=== PATIENT | female | born 1970 | race African-American/Black ===

== ENCOUNTER 2023-02-01 16:21 | Inpatient (IN) | payer MEDICAID, OTHER ==
[~2023-02-01] VITALS: Ht 157.5 cm; Wt 93.9 kg
[2023-02-01] MEDS ORDERED: cloNIDine HCL 0.1 MG TAB PO ONE (16:45)
[2023-02-01 17:04] LABS: Basophils # (auto) 0.1 10 ^3/uL (0-0.2); Basophils % (auto) 0.8 % (0.0-2.0); Eosinophils # (auto) 0.5 10 ^3/uL (0-0.8); Eosinophils % (auto) 7.2 % (0.0-7.0); Hematocrit 35.9 % (36.0-46.0); Hemoglobin 11.5 g/dL (12.2-16.2); Lymphocytes # (auto) 2.5 10 ^3/uL (0.4-5.4); Lymphocytes % (auto) 39.7 % (10.0-50.0); Mean Corpuscular Hgb Conc. 31.9 g/dL (32.0-36.0); Mean Corpuscular Volume 87.6 fL (80.0-100.0); Monocytes # (auto) 0.5 10 ^3/uL (0-1.3); Monocytes % (auto) 7.9 % (0.0-12.0); Neutrophils # (auto) 2.8 10 ^3/uL (1.6-8.6); Neutrophils % (auto) 44.4 % (37.0-80.0); Nucleated Red Blood Cells % 0.1 %; Red Cell Distribution Width 18.8 % (11.8-14.3); White Blood Cell 6.4 10^3/uL (4.4-10.8)
[2023-02-01 17:20] LABS: INR 0.93 (0.9-1.15); Partial Thromboplastin Time 24.5 SEC (24.5-34.5); Prothrombin Time 9.8 sec (9.3-11.8)
[2023-02-01 17:25] LABS: Alanine Aminotransferase 21 U/L (7-40); Albumin 4.1 g/dL (3.2-4.8); Alkaline Phosphatase 126 U/L (46-116); Anion Gap 3 (5-15); Aspartate Aminotransferase 20 U/L (13-40); BUN/Creatinine Ratio 15.6 (10.0-20.0); Bilirubin, Total 0.2 mg/dL (0.2-1.0); Blood Urea Nitrogen 15 mg/dL (9-23); Calcium 9.1 mg/dL (8.7-10.4); Carbon Dioxide 28 mmol/L (20-30); Chloride 110 mmol/L (98-107); Glucose 83 mg/dL (74-106); Magnesium 2.2 mg/dL (1.6-2.6); Potassium 4.7 mmol/L (3.5-5.1); Sodium 141 mmol/L (136-145); Total Protein 6.6 g/dL (5.7-8.2)
[2023-02-01] MEDS ORDERED: ONDANSETRON HCL 4 MG/2 ML VIAL IV ONE (23:00)
[2023-02-01] MEDS ORDERED: MORPHINE SULFATE 4 MG/ML SYR/VIAL IV ONE (23:00)
[2023-02-01] MEDS ORDERED: ASPirin 81 mg TAB PO ONE (23:00)
[2023-02-01] MEDS ORDERED: HYDROcodone-ACET 10/325MG TAB PO ONE (23:00)
[2023-02-01] MEDS ORDERED: PANTOPRAZOLE 40 MG/10 ML VIAL INJ IV ONE (23:00)
[2023-02-01] MEDS ORDERED: NITROGLYCERIN 2% OINT 1GM PKG TD ONE (23:00)
[2023-02-01] MEDS ORDERED: ENOXAPARIN SOD 100 MG/1 ML SYRINGE SC ONE (23:00)
[2023-02-01 23:49] LABS: INR 0.95 (0.9-1.15); Partial Thromboplastin Time 24.2 SEC (24.5-34.5)
[2023-02-01 23:55] VITALS: O2SAT 98
[2023-02-02] MEDS ORDERED: NITROGLYCERIN 0.4 MG SL TAB SL PRN (01:15)
[2023-02-02] MEDS ORDERED: MORPHINE SULFATE INJ 2 MG/ml SYRG IV PRN (01:15)
[2023-02-02] MEDS ORDERED: DOCUSATE SOD 100 MG CAP PO PRN (01:15)
[2023-02-02] MEDS ORDERED: ACETAMINOPHEN 325 MG TAB PO PRN (01:15)
[2023-02-02 04:00] VITALS: PULSE 66; RESP 11; O2SAT 93
[2023-02-02] MEDS: hydrALAZINE HCL 20 MG/ML VL IV PRN ×2 (04:49→16:21)
[2023-02-02 05:12] LABS: Basophils # (auto) 0.1 10 ^3/uL (0-0.2); Basophils % (auto) 0.8 % (0.0-2.0); Eosinophils # (auto) 0.4 10 ^3/uL (0-0.8); Eosinophils % (auto) 5.1 % (0.0-7.0); Hematocrit 36.1 % (36.0-46.0); Hemoglobin 11.4 g/dL (12.2-16.2); Lymphocytes # (auto) 2.4 10 ^3/uL (0.4-5.4); Lymphocytes % (auto) 33.9 % (10.0-50.0); Mean Corpuscular Hemoglobin 28.1 pg (28.0-32.0); Mean Corpuscular Hgb Conc. 31.6 g/dL (32.0-36.0); Mean Corpuscular Volume 88.9 fL (80.0-100.0); Monocytes # (auto) 0.7 10 ^3/uL (0-1.3); Monocytes % (auto) 9.4 % (0.0-12.0); Neutrophils # (auto) 3.6 10 ^3/uL (1.6-8.6); Neutrophils % (auto) 50.8 % (37.0-80.0); Nucleated Red Blood Cells % 0.1 %; Red Blood Cells 4.06 10^6/uL (4.0-5.20); Red Cell Distribution Width 18.9 % (11.8-14.3)
[2023-02-02 05:17] LABS: Alanine Aminotransferase 18 U/L (7-40); Albumin 4.1 g/dL (3.2-4.8); Alkaline Phosphatase 118 U/L (46-116); Anion Gap 7 (5-15); Aspartate Aminotransferase 21 U/L (13-40); Bilirubin, Total 0.3 mg/dL (0.2-1.0); Blood Urea Nitrogen 8 mg/dL (9-23); Carbon Dioxide 22 mmol/L (20-30); Chloride 110 mmol/L (98-107); Glucose 82 mg/dL (74-106); Sodium 139 mmol/L (136-145); Total Protein 6.8 g/dL (5.7-8.2)
[2023-02-02 05:23] LABS: BUN/Creatinine Ratio 10.3 (10.0-20.0)
[2023-02-02] MEDS: SODIUM CHLOR 0.9% PF (SALINE LOCK) 10ML VIAL/SYR IV SCH ×3 (06:08→22:07)
[2023-02-02] MEDS: MORPHINE SULFATE INJ 2 MG/ml SYRG IV PRN ×3 (07:50→21:06)
[2023-02-02] MEDS: ONDANSETRON HCL 4 MG/2 ML VIAL IV PRN ×2 (07:50→12:02)
[2023-02-02 08:00] VITALS: PULSE 75; RESP 22; O2SAT 100
[2023-02-02] MEDS ORDERED: CARVEDILOL 3.125 MG TAB PO SCH (10:00)
[2023-02-02] MEDS: PANTOPRAZOLE 40 MG/10 ML VIAL INJ IV SCH (10:13)
[2023-02-02] MEDS: ENOXAPARIN SOD 100 MG/1 ML SYRINGE SC SCH (10:14)
[2023-02-02] MEDS ORDERED: amLODIPine BESYLATE 5 MG TAB PO ONE (13:30)
[2023-02-02] MEDS ORDERED: LOSARTAN POTASSIUM 50 MG TAB PO ONE (13:30)
[2023-02-02] MEDS ORDERED: SPIRONOLACTONE 25 MG TAB PO ONE (13:30)
[2023-02-02 21:10] LABS: Urine Bacteria NONE SEEN /hpf (None Seen); Urine Blood Negative /uL (Negative); Urine Clarity Clear (Clear); Urine Color Yellow (Yellow); Urine Protein, UAD Negative (Negative); Urine Specific Gravity 1.014 (1.001-1.035); Urine WBC 2 /hpf (0 - 5); Urine pH 6.5 (5.0-8.0)
[2023-02-02] MEDS ORDERED: ATORVASTATIN 20 MG TAB PO SCH (22:00)
[2023-02-02] MEDS: METOPROLOL TARTRATE 50 MG TAB PO SCH (22:10)
[2023-02-02] MEDS: ACYCLOVIR 400 MG TAB PO SCH (22:10)
[2023-02-02] MEDS: ATORVASTATIN 20 MG TAB PO SCH (22:10)
[2023-02-02 23:47] VITALS: BP 143/97; PULSE 68; RESP 18; TEMP 98.5; O2SAT 99
[2023-02-03] VITALS (7 sets, daily range): BP systolic 133–151; BP diastolic 81–97; PULSE 64–97; RESP 18–22; TEMP 97.8–98.5; O2SAT 98–100
[2023-02-03] MEDS ORDERED: ASPI-498 OR (01:14)
[2023-02-03] MEDS ORDERED: METO-158 PO (01:14)
[2023-02-03] MEDS ORDERED: SPIR50TA5 PO (01:14)
[2023-02-03] MEDS ORDERED: AMLO1TAB22 PO (01:14)
[2023-02-03] MEDS ORDERED: LOSA50TA46 PO (01:14)
[2023-02-03] MEDS ORDERED: ACYC200C22 PO (01:14)
[2023-02-03] MEDS: hydrALAZINE HCL 20 MG/ML VL IV PRN (05:54)
[2023-02-03] MEDS: SODIUM CHLOR 0.9% PF (SALINE LOCK) 10ML VIAL/SYR IV SCH ×3 (06:10→21:58)
[2023-02-03 06:47] LABS: Basophils # (auto) 0.1 10 ^3/uL (0-0.2); Basophils % (auto) 0.9 % (0.0-2.0); Eosinophils # (auto) 0.2 10 ^3/uL (0-0.8); Eosinophils % (auto) 2.2 % (0.0-7.0); Hematocrit 36.4 % (36.0-46.0); Hemoglobin 11.5 g/dL (12.2-16.2); Lymphocytes % (auto) 27.6 % (10.0-50.0); Mean Corpuscular Hemoglobin 27.8 pg (28.0-32.0); Mean Corpuscular Hgb Conc. 31.5 g/dL (32.0-36.0); Mean Corpuscular Volume 88.3 fL (80.0-100.0); Monocytes # (auto) 0.8 10 ^3/uL (0-1.3); Neutrophils # (auto) 4.3 10 ^3/uL (1.6-8.6); Neutrophils % (auto) 58.3 % (37.0-80.0); Nucleated Red Blood Cells % 0.1 %; Red Blood Cells 4.12 10^6/uL (4.0-5.20); Red Cell Distribution Width 18.9 % (11.8-14.3); White Blood Cell 7.4 10^3/uL (4.4-10.8)
[2023-02-03 07:00] LABS: Alanine Aminotransferase 15 U/L (7-40); Albumin 4.1 g/dL (3.2-4.8); Alkaline Phosphatase 121 U/L (46-116); Anion Gap 7 (5-15); Aspartate Aminotransferase 18 U/L (13-40); Bilirubin, Total 0.6 mg/dL (0.2-1.0); Blood Urea Nitrogen 8 mg/dL (9-23); Calcium 9.2 mg/dL (8.7-10.4); Carbon Dioxide 23 mmol/L (20-30); Chloride 107 mmol/L (98-107); Glucose 96 mg/dL (74-106); Potassium 4.1 mmol/L (3.5-5.1); Sodium 137 mmol/L (136-145); Total Protein 6.9 g/dL (5.7-8.2)
[2023-02-03] MEDS: HYDROcodone-ACET 5/325MG TAB PO PRN ×2 (08:21→22:26)
[2023-02-03] MEDS ORDERED: LORazepam 0.5 MG TAB PO ONE (09:00)
[2023-02-03] MEDS: METOPROLOL TARTRATE 50 MG TAB PO SCH ×2 (09:20→22:10)
[2023-02-03] MEDS: SPIRONOLACTONE 25 MG TAB PO SCH (09:20)
[2023-02-03] MEDS: ACYCLOVIR 400 MG TAB PO SCH ×2 (09:21→21:58)
[2023-02-03] MEDS: ENOXAPARIN SOD 100 MG/1 ML SYRINGE SC SCH (09:21)
[2023-02-03] MEDS: PANTOPRAZOLE 40 MG/10 ML VIAL INJ IV SCH (09:21)
[2023-02-03] MEDS ORDERED: LOSARTAN POTASSIUM 50 MG TAB PO SCH (10:00)
[2023-02-03] MEDS ORDERED: amLODIPine BESYLATE 5 MG TAB PO SCH (10:00)
[2023-02-03] MEDS: VALSARTAN 80 MG TAB PO SCH (11:10)
[2023-02-03] MEDS ORDERED: ACYC1TAB2 PO (14:08)
[2023-02-03] MEDS ORDERED: AMLO1TAB23 PO (14:08)
[2023-02-03] MEDS: ATORVASTATIN 20 MG TAB PO SCH (21:58)
[2023-02-04 05:00] VITALS: BP 134/93; PULSE 75; RESP 20; TEMP 98; O2SAT 99
[2023-02-04] MEDS: SODIUM CHLOR 0.9% PF (SALINE LOCK) 10ML VIAL/SYR IV SCH ×2 (06:10→13:39)
[2023-02-04 07:45] VITALS: PULSE 69
[2023-02-04] MEDS: ENOXAPARIN SOD 100 MG/1 ML SYRINGE SC SCH (08:37)
[2023-02-04] MEDS: PANTOPRAZOLE 40 MG/10 ML VIAL INJ IV SCH (08:37)
[2023-02-04] MEDS: METOPROLOL TARTRATE 50 MG TAB PO SCH (08:38)
[2023-02-04] MEDS: ACYCLOVIR 400 MG TAB PO SCH (08:38)
[2023-02-04] MEDS: SPIRONOLACTONE 25 MG TAB PO SCH (08:38)
[2023-02-04] MEDS: VALSARTAN 80 MG TAB PO SCH (08:39)
[2023-02-04 08:42] VITALS: BP 110/91; PULSE 78; RESP 20; TEMP 97.8; O2SAT 99
[2023-02-04] MEDS ORDERED: NIFEdipine ER 30 MG TAB PO SCH (10:00)
[2023-02-04] MEDS ORDERED: VALS320T PO (10:52)
[2023-02-04] MEDS ORDERED: NIFE90TA75 PO (10:52)
[2023-02-04 12:30] VITALS: BP 146/94; PULSE 67; RESP 20; TEMP 98; O2SAT 99
[2023-02-04 12:56] VITALS: BP 146/94; PULSE 67
[2023-02-04] MEDS: HYDROcodone-ACET 5/325MG TAB PO PRN (13:39)
== END 2023-02-04 14:50 | disposition home or self-care (01) | DRG 199 ==
LOC: ER 16:21 → TELE 02-02 01:32 → TELE-EAST 02-02 22:44
PROVIDERS: ADMIT Nurse Practitioner Family; ATTEND Internal Medicine Geriatric Medicine
DX: I16.0 Hypertensive urgency (principal); I42.8 Other cardiomyopathies; I50.32 Chronic diastolic (congestive) heart failure; I11.0 Hypertensive heart disease with heart failure; M43.6 Torticollis; Z88.8 Allergy status to other drugs, medicaments and biological substances; Z79.82 Long term (current) use of aspirin; Z79.899 Other long term (current) drug therapy; Z88.6 Allergy status to analgesic agent; Z98.84 Bariatric surgery status
CPT/HCPCS: 36415; 70450; 71046; 80053; 81001; 83735; 83880; 84443; 84484; 85025; 85610; 85730; 93005; 93306; 93975; C9113; G0378; J2405